=== PATIENT | female | born 1965 | race Caucasian/White ===

== ENCOUNTER → 2017-10-28 21:13 | Emergency (ER) | payer OTHER ==
--- NOTE | 2017-10-30 22:45 | UC ---
Jose David Smith Thomas, scribed for Rafy Kaur MD on 10/28/17 at 2138 . Skin Complaint HPI - HPI Summary HPI Summary: The patient is a 52 year old female presenting to Urgent Care complaining of a rash on her right forearm that she first noticed this morning. The rash is painful and the pain is aggravated by touch. The patient has a history of shingles about three months ago, and she is concerned that this rash is shingles. - History of Current Complaint Chief Complaint: UCSkin Time Seen by Provider: 10/28/17 21:30 Stated Complaint: RASH Hx Obtained From: Patient Hx Last Menstrual Period: perimenopausal Onset/Duration: Lasting Hours - first noticed today, Still Present Timing: Constant Current Severity: Moderate Location: Other - Right forearm Character: Pain Aggravating Factor(s): Touch Alleviating Factor(s): Nothing Associated Signs & Symptoms: Negative: Fever Related History: Other: - Hx of shingles - Allergy/Home Medications Allergies/Adverse Reactions: Allergies Allergy/AdvReac Type Severity Reaction Status Date / Time No Known Allergies Allergy Verified 10/28/17 21:35 Home Medications: Home Medications NK [No Home Medications Reported] 10/28/17 [History Confirmed 10/28/17] Review of Systems Constitutional: Other - NEGATIVE: fever Skin: Rash Is Patient Immunocompromised?: No All Other Systems Reviewed And Are Negative: Yes PMH/Surg Hx/FS Hx/Imm Hx Previously Healthy: No - Shingles; NEGATIVE: HTN, DM - Surgical History Surgical History: None - Family History Known Family History: Positive: Other - Patient denies relevant FHx - Social History Alcohol Use: Occasionally Substance Use Type: None Smoking Status (MU): Never Smoked Tobacco - Immunization History Most Recent Influenza Vaccination: unknown Physical Exam Triage Information Reviewed: Yes Vital Signs: Initial Vital Signs Temp 97.9 F 10/28/17 21:31 Pulse 63 10/28/17 21:31 Resp 14 10/28/17 21:31 BP 114/69 10/28/17 21:31 Pulse Ox 99 10/28/17 21:31 Vital Signs Reviewed: Yes - Additional Comments VITAL SIGNS: Reviewed. GENERAL: Patient is a well-developed and nourished female who is lying comfortable in the stretcher. Patient is not in any acute respiratory distress. HEAD AND FACE: Normocephalic EYES: PERRLA, EOMI x 2. EARS: Hearing grossly intact. MOUTH: Oropharynx within normal limits. NECK: Supple, trachea is midline, no adenopathy, no JVD, no carotid bruit. CHEST: Symmetric, no tenderness at palpation LUNGS: Clear to auscultation bilaterally. No wheezing or crackles. CVS: Regular rate and rhythm, S1 and S2 present, no murmurs or gallops appreciated. ABDOMEN: Soft, non-tender. Bowel sounds are normal. No abdominal abnormal pulsations. EXTREMITIES: Full ROM in all major joints, no edema, no cyanosis or clubbing. NEURO: Alert and oriented x 3. No acute neurological deficits. Speech is normal and follows commands. SKIN: Dry and warm. There is a foreign body in the right wrist that was removed with tweezers. Course/Dx - Course Course Of Treatment: The patient is a 52 year old female presenting to Urgent Care complaining of a rash on her right forearm that she first noticed this morning. The rash is painful and the pain is aggravated by touch. The patient has a history of shingles about three months ago, and she is concerned that this rash is shingles. There is a foreign body in the right wrist that was removed with tweezers. The patient is diagnosed with foreign body. The patient will be discharged home and instructed to follow up with primary care. - Diagnoses Provider Diagnoses: Foreign body Discharge - Discharge Plan Condition: Stable Disposition: HOME Patient Education Materials: Soft Tissue Foreign Body (ED) Referrals: Chava Pool MD [Primary Care Provider] - 3 Days Additional Instructions: Follow up with your primary care physician in three days. Return to urgent care for any new or worsening symptoms. The documentation as recorded by the Jose David guerra Thomas accurately reflects the service I personally performed and the decisions made by Vincent donnelly Walter, MD.
== END | disposition home or self-care (01) ==
LOC: UCEAST 21:13
DX: S60.851A Superficial foreign body of right wrist, initial encounter (principal); X58.XXXA Exposure to other specified factors, initial encounter; Y92.9 Unspecified place or not applicable; Z78.0 Asymptomatic menopausal state
CPT/HCPCS: 99202; G0463